=== PATIENT | female | born 1955 | race Hispanic/Latino ===

== ENCOUNTER 2020-03-14 10:15 | Emergency (ER) | payer BC, OTHER ==
[2020-03-14 10:55] LABS: #Lymphocytes 0.9 thou/uL (1.20-3.40); #Monocytes 0.5 thou/uL (0.11-0.59); #Neutrophils 4.1 thou/uL (1.40-6.50); %Basophils 0.4 % (0.0-1.0); %Eosinophils 0.5 % (0.0-10.0); %Monocytes 9.5 % (0.0-10.0); %Neutrophils 73.6 % (42.0-75.0); Hemoglobin 13.7 g/dL (12.0-16.0); Mean Corpuscular HGB CONC 34.1 g/dL (32.0-36.0); Mean Corpuscular Hemoglobin 31.4 pg (27.0-31.0); Mean Corpuscular Volume 92.3 fL (78.0-98.0); Mean Platelet Volume 9.4 fL (7.4-10.4); Platelet Count 189 thou/uL (130-400); RBC Distribution Width 11.5 % (11.5-14.5); Red Blood Cell (RBC) Count 4.35 mill/uL (4.20-5.40); White Blood Cell (WBC) Count 5.5 thou/uL (4.8-10.8)
--- NOTE | 2020-03-14 11:18 | RAD ---
XR Chest 1 View Portable HISTORY: Shortness of breath and chest pain, cough COMPARISON: 02/24/2017 FINDINGS: The heart size is normal. There is a questionable mild infiltrate in the right mid/lower richard ng. No Pneumothorax or pleural effusions.
[2020-03-14 11:24] LABS: ALT (SGPT) 31 U/L (8-55); AST (SGOT) 31 U/L (5-34); Albumin 3.8 g/dL (3.4-4.8); Alkaline Phosphatase 101 U/L (40-110); Anion Gap 14 mmol/L (10-20); BUN (Urea Nitrogen) 14 mg/dL (9.8-20.1); Bilirubin, Total 0.3 mg/dL (0.2-1.2); CK (CPK) 53 U/L (29-168); Calc. Creatinine Clearance 0 mL/min (70-130); Carbon Dioxide 23 mmol/L (23-31); Chloride 104 mmol/L (98-107); Estimated GFR-MDRD 71; Globulin 3.4 g/dL (2.4-3.5); Glucose 132 mg/dL (80-115); Lipase 34 U/L (8-78); Potassium 4.1 mmol/L (3.5-5.1); Protein, Total 7.2 g/dL (6.0-8.3); Sodium 137 mmol/L (136-145)
[2020-03-14] MEDS ORDERED: Dexamethasone 10 MG/ML VIAL ONE (11:30)
--- NOTE | 2020-03-14 13:02 | CT ---
CT arteriogram chest with IV contrast and 3-D imaging HISTORY: Dyspnea. Chest pain. FINDINGS: There is good contrast opacification pulmonary arteries and thoracic aorta with normal bran reji of the great vessels at the aortic arch. Patchy subtle ill-defined areas of predominantly peripheral groundglass parenchymal infiltrate are pr esent throughout each lung. No lobar consolidation, pleural fluid, or mediastinal adenopathy are apparent. IMPRESSION : No CT evidence of pulmonary embolus. Patchy bilateral peripheral multifocal pneumonitis. Clinical correlation regarding other signs and sy mptoms of COVID pneumonitis is required.
[2020-03-14] MEDS ORDERED: Iopamidol 370 76% 100 ML VIAL ONE (13:43)
[2020-03-14 14:56] LABS: Lactic Acid 1.8 mmol/L (0.5-2.2)
== END 2020-03-14 16:35 | disposition home or self-care (01) ==
LOC: ERS 10:15
DX: U07.1 COVID-19 (principal); I10 Essential (primary) hypertension; Z79.899 Other long term (current) drug therapy
CPT/HCPCS: 36415; 71045; 71275; 80053; 82550; 83605; 83690; 84484; 85025; 85379; 93005; 96360; 96361; J1100; Q9967